=== PATIENT | male | born 1980 | race Caucasian/White ===

== ENCOUNTER 2016-08-06 09:43 | Emergency (ER) | payer OTHER ==
[~2016-08-06] VITALS: Ht 190.5 cm; Wt 153.0 kg
[2016-08-06] MEDS ORDERED: PERCOCET 5/31 TABLET PO (11:51)
[2016-08-06] MEDS ORDERED: FLEXERIL5 MG PO (11:51)
[2016-08-06 12:33] VITALS: BP 122/81
== END 2016-08-06 12:33 | disposition home or self-care (01) ==
LOC: EME 09:43
DX: S20.211A Contusion of right front wall of thorax, initial encounter (principal); R10.9 Unspecified abdominal pain; M54.9 Dorsalgia, unspecified; W00.0XXA Fall on same level due to ice and snow, initial encounter; F17.200 Nicotine dependence, unspecified, uncomplicated
CPT/HCPCS: 71020; 99281; 99283; J1170